=== PATIENT | female | born 1935 | race Caucasian/White ===

== ENCOUNTER → 2021-04-14 | Outpatient (CLI) | payer MEDICARE ==
[~2021-04-14] MED LIST: ACETYLCYST1000 MG/10 PO; BENICAR20 MG; EVISTA; FOLIC ACID1 MG; FURADANTIN25 MG/5 ML
== END ==
LOC: M.ULTRA 10:07
DX: N18.9 Chronic kidney disease, unspecified (principal); R31.1 Benign essential microscopic hematuria; R31.9 Hematuria, unspecified; N39.0 Urinary tract infection, site not specified